=== PATIENT | female | born 1950 | race Caucasian/White ===

== ENCOUNTER 2017-12-05 18:56 | Emergency (ER) | payer MEDICARE, BC ==
[2017-12-05] MEDS: Sodium Chloride 0.9% 2.5 ML Syringe FLUSH PRN ×2 (19:10→19:11)
[2017-12-05] MEDS ORDERED: LORazepam 2 MG/ML SDV IVPUSH ONE (19:28)
[2017-12-05] MEDS ORDERED: diphenhydrAMINE 50 MG/ML SDV IVPUSH ONE (19:28)
[2017-12-05] MEDS ORDERED: Sodium Chloride 0.9% 10 ML Syringe FLUSH PRN (19:28)
[2017-12-05] MEDS ORDERED: Ondansetron 4 MG/2 ML SDV IVPUSH ONE (19:28)
[2017-12-05] MEDS ORDERED: Sodium Chloride 0.9% 1,000 ML IV ONE (19:28)
--- NOTE | 2017-12-05 19:34 | EDM.PDOC ---
ED HPI GENERAL MEDICAL PROBLEM - General Chief Complaint: Gastrointestinal Problem Stated Complaint: VOMITING/DIZZY/SINUS INFECTION Time Seen by Provider: 12/05/17 19:14 - History of Present Illness INITIAL COMMENTS - FREE TEXT/NARRATIVE: HISTORY AND PHYSICAL: History of present illness: The patient is a 67-year-old female with a history of hypercholesterolemia and migraine headaches, for which she sees our neurologist Dr. Whitaker, and who presents with symptoms that started about 9-10 days ago when she started having a sinus infection. She saw her provider in the clinic 4 days ago and was started on Augmentin as well as Flonase and coou-yfu-pzlgova Mucinex. She said she didn't have nausea vomiting or headaches but did have some gradual episodic dizziness for which she described it was a spinning-like sensation but it was a brief in duration. She had no associated symptoms with the dizziness and the 4 days proceeding today. Then today she started to have persistent dizziness which she describes as a spinning-like sensation which is worse when her eyes are open and with any movement of her head. She has no ear pain no discrete headache or neck pain no chest pain or shortness of breath and she has had nausea all day with 4 episodes of vomiting and several episodes of some diarrhea. Patient has no abdominal pain. Patient has no visual changes and has no prior history of vertiginous symptoms or in her ear disturbances. Patient denies any numbness tingling or weakness to her extremities and does not feel lightheaded or feel like she is going to pass out. She describes the sensation as a spinning-like feeling. Her family member at bedside told me that she looked up on the Internet the Melissa maneuver and to try that but she did not see nystagmus. Review of systems: As per history of present illness and below otherwise all systems reviewed and negative. Past medical history: As per history of present illness and as reviewed below otherwise noncontributory. Surgical history: As per history of present illness and as reviewed below otherwise noncontributory. Social history: No reported history of drug or alcohol abuse. Family history: As per history of present illness and as reviewed below otherwise noncontributory. Physical exam: General: Well-developed mildly overweight female who is nontoxic but looks uncomfortable in the room with any movement of her head and has overall pale appearance. She is not diaphoretic and vital signs were noted by me. HEENT: Atraumatic, normocephalic, pupils reactive, EOMs are intact with nystagmus seen upon left gaze, negative for conjunctival pallor or scleral icterus, mucous membranes moist, throat clear, neck supple, nontender, trachea midline. There is no cervical adenopathy or nuchal rigidity and TMs are normal with slight dullness bilaterally. There is no discrete sinus tenderness and no nasal quality to her voice. Lungs: Clear to auscultation, breath sounds equal bilaterally, chest nontender. Heart: S1S2, regular, negative for clicks, rubs, or JVD. Abdomen: Soft, nondistended, nontender. Negative for masses or hepatosplenomegaly. NABS Pelvis: Stable nontender. Genitourinary: Deferred. Rectal: Deferred. Extremities: Atraumatic, negative for cords or calf pain. Neurovascular unremarkable. Neuro: Awake, alert, oriented. Cranial nerves II through XII unremarkable. Cerebellum unremarkable. Motor and sensory unremarkable throughout. Exam nonfocal. Diagnostics: CBC CMP CT scan of the head Therapeutics: IV IV fluids Zofran Benadryl Ativan Antivert Reevaluation 2019: Patient no longer has much nausea and feels improved but she has not tried to move very much. She is currently only half done with her IV fluids so we will allow her to finish those fluids and then try a by mouth challenge and a movement challenge to see if we can get her discharged home. 2107: Patient is able to sit at the bedside and does feel improved and she was able to tolerate water. I will give her a dose of Antivert and sent home with Antivert and Zofran and instructions to follow-up with Dr. Whitaker. Impression: Acute vertigo with history of sinus infection on therapy Definitive disposition and diagnosis as appropriate pending reevaluation and review of above. denies pain Pain Score (Numeric/FACES): 0 - Related Data Allergies Allergy/AdvReac Type Severity Reaction Status Date / Time No Known Allergies Allergy Verified 12/05/17 19:05 Home Meds: Home Meds Aspirin 81 mg PO DAILY 12/05/17 [History] Calcium Carbonate/Vitamin D3 [Calcium 600-Vit D3 500 Softgel] 1 each PO DAILY [History] Citalopram [Citalopram HBr] 10 mg PO DAILY 12/05/17 [History] Latanoprost 1 drop EYEBOTH DAILY 12/05/17 [History] Timolol Maleate [Timoptic 0.5% Ophth Soln] 1 drop EYEBOTH DAILY 12/05/17 [ History] Topiramate [Topiramate ER] 1 tab PO BID 12/05/17 [History] atorvaSTATin [Lipitor] 20 mg PO BEDTIME 12/05/17 [History] Past Medical History HEENT History: Reports: Glaucoma Cardiovascular History: Reports: High Cholesterol Respiratory History: Reports: None Gastrointestinal History: Reports: None Genitourinary History: Reports: None 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: Musculoskeletal History: Reports: None Neurological History: Reports: Migraines Psychiatric History: Reports: None Endocrine/Metabolic History: Reports: None Hematologic History: Reports: None Immunologic History: Reports: None Oncologic (Cancer) History: Reports: None Dermatologic History: Reports: None - Infectious Disease History Infectious Disease History: Reports: Mumps - Past Surgical History Head Surgeries/Procedures: Reports: None GI Surgical History: Reports: Cholecystectomy Female Surgical History: Reports: Hysterectomy Social & Family History - Family History Family Medical History: Noncontributory - Tobacco Use Smoking Status *Q: Former Smoker Used Tobacco, but Quit: No - Caffeine Use Caffeine Use: Reports: Soda - Recreational Drug Use Recreational Drug Use: No ED ROS GENERAL - Review of Systems Review Of Systems: ROS reveals no pertinent complaints other than HPI. ED EXAM, GENERAL - Physical Exam Exam: See Below (See dictation) Course - Vital Signs Last Recorded V/S: Last Vital Signs Temp 36.1 C 12/05/17 19:05 Pulse 64 12/05/17 19:05 Resp 18 12/05/17 19:05 BP 139/70 12/05/17 19:05 Pulse Ox 98 12/05/17 19:05 - Orders/Labs/Meds Orders: Active Orders 24 hr Category Date Time Status Head wo Cont [CT] Stat Exams 12/05/17 19:28 Taken Sodium Chloride 0.9% [Saline Flush] Med 12/05/17 19:28 Active 10 ml FLUSH ASDIRECTED PRN Sodium Chloride 0.9% [Saline Flush] Med 12/05/17 19:28 Active 2.5 ml FLUSH ASDIRECTED PRN Saline Lock Insert [OM.PC] Stat Oth 12/05/17 19:28 Ordered Medication Orders Sodium Chloride (Saline Flush) 10 ml FLUSH ASDIRECTED PRN PRN Reason: Keep Vein Open Sodium Chloride (Saline Flush) 2.5 ml FLUSH ASDIRECTED PRN PRN Reason: Keep Vein Open Last Admin: 12/05/17 19:11 Dose: 2.5 ml Admin: 12/05/17 19:10 Dose: 2.5 ml Labs: Laboratory Tests 12/05/17 12/05/17 Range/Units 19:10 19:10 WBC 7.65 (4.0-11.0) K/uL RBC 5.26 (4.30-5.90) M/uL Hgb 15.6 (12.0-16.0) g/dL Hct 45.7 (36.0-46.0) % MCV 86.9 (80.0-98.0) fL MCH 29.7 (27.0-32.0) pg MCHC 34.1 (31.0-37.0) g/dL RDW Std Deviation 43.4 (28.0-62.0) fl RDW Coeff of Rachid 14 (11.0-15.0) % Plt Count 199 (150-400) K/uL MPV 10.90 (7.40-12.00) fL Neut % (Auto) 76.1 (48.0-80.0) % Lymph % (Auto) 19.6 (16.0-40.0) % Newberry % (Auto) 4.1 (0.0-15.0) % Eos % (Auto) 0.1 (0.0-7.0) % Baso % (Auto) 0.1 (0.0-1.5) % Neut # (Auto) 5.8 H (1.4-5.7) K/uL Lymph # (Auto) 1.5 (0.6-2.4) K/uL Newberry # (Auto) 0.3 (0.0-0.8) K/uL Eos # (Auto) 0.0 (0.0-0.7) K/uL Baso # (Auto) 0.0 (0.0-0.1) K/uL Nucleated RBC % 0.0 /100WBC Nucleated RBCs # 0 K/uL Sodium 138 (136-145) mmol/L Potassium 3.9 (3.5-5.1) mmol/L Chloride 104 (98-107) mmol/L Carbon Dioxide 23.3 (21.0-32.0) mmol/L BUN 12 (7.0-18.0) mg/dL Creatinine 0.8 (0.6-1.0) mg/dL Est Cr Clr Drug Dosing 50.36 mL/min Estimated GFR (MDRD) > 60.0 ml/min Glucose 110 H (74-106) mg/dL Calcium 9.3 (8.5-10.1) mg/dL Total Bilirubin 0.6 (0.2-1.0) mg/dL AST 27 (15-37) IU/L ALT 26 (14-63) IU/L Alkaline Phosphatase 72 (46-116) U/L Total Protein 7.8 (6.4-8.2) g/dL Albumin 3.7 (3.4-5.0) g/dL Globulin 4.1 H (2.0-3.5) g/dL Albumin/Globulin Ratio 0.9 L (1.3-2.8) Meds: Medications Generic Name Dose Route Start Last Admin Trade Name Freq PRN Reason Stop Dose Admin Sodium Chloride 10 ml 12/05/17 19:28 Saline Flush FLUSH ASDIRECTED PRN Keep Vein Open Sodium Chloride 2.5 ml 12/05/17 19:28 12/05/17 19:11 Saline Flush FLUSH 2.5 ml ASDIRECTED PRN Administration Keep Vein Open Discontinued Medications Generic Name Dose Route Start Last Admin Trade Name Freq PRN Reason Stop Dose Admin Diphenhydramine HCl 50 mg 12/05/17 19:28 12/05/17 19:56 Benadryl IVPUSH 12/05/17 19:29 50 mg ONETIME ONE Administration Sodium Chloride 1,000 mls @ 999 mls/hr 12/05/17 19:28 12/05/17 19:55 Normal Saline IV 12/05/17 20:28 999 mls/hr STAT ONE Administration Lorazepam 1 mg 12/05/17 19:28 12/05/17 19:58 Ativan IVPUSH 12/05/17 19:29 1 mg ONETIME ONE Administration Ondansetron HCl 4 mg 12/05/17 19:28 12/05/17 19:55 Zofran IVPUSH 12/05/17 19:29 4 mg ONETIME ONE Administration Departure - Departure Time of Disposition: 21:11 Disposition: Home, Self-Care 01 Condition: Good Clinical Impression: Vertigo Sinusitis Qualifiers: Sinusitis location: maxillary Chronicity: acute Recurrence: not specified as recurrent Qualified Code(s): J01.00 - Acute maxillary sinusitis, unspecified - Discharge Information Referrals: Arpan Barbour MD [Primary Care Provider] - Forms: ED Department Discharge Additional Instructions: The following information is given to patients seen in the emergency department who are being discharged to home. This information is to outline your options for follow-up care. We provide all patients seen in our emergency department with a follow-up referral. The need for follow-up, as well as the timing and circumstances, are variable depending upon the specifics of your emergency department visit. If you don't have a primary care physician on staff, we will provide you with a referral. We always advise you to contact your personal physician following an emergency department visit to inform them of the circumstance of the visit and for follow-up with them and/or the need for any referrals to a consulting specialist. The emergency department will also refer you to a specialist when appropriate. This referral assures that you have the opportunity for followup care with a specialist. All of these measure are taken in an effort to provide you with optimal care, which includes your followup. Under all circumstances we always encourage you to contact your private physician who remains a resource for coordinating your care. When calling for followup care, please make the office aware that this follow-up is from your recent emergency room visit. If for any reason you are refused follow-up, please contact the [facility] emergency department at and ask to speak to the emergency department charge nurse. [facility] Primary care- Internal Medicine and Family [facility] [address] [place] [id number] [facility] Specialty care-Neurology Professional Building [address] [place] [address], [address] [place] [address] Please continue and finish her antibiotics for your sinusitis as treating this will also help your symptoms of vertigo. Please also add an [id number] antihistamine such as Benadryl/Claritin/Chelsea to help dry up the sinus fluid. Use medications as prescribed, Zofran and Antivert, for symptoms and please call and schedule a follow-up appointment with either Dr. Whitaker or your provider in the clinic in the next few days for reevaluation. Return to ER as needed and as discussed. Do all position changes very slowly as the dizziness is going to persist over the next 24-48 hours. - My Orders Last 24 Hours: My Active Orders 12/05/17 19:28 Head wo Cont [CT] Stat Sodium Chloride 0.9% [Saline Flush] 10 ml FLUSH ASDIRECTED PRN Sodium Chloride 0.9% [Saline Flush] 2.5 ml FLUSH ASDIRECTED PRN Saline Lock Insert [OM.PC] Stat - Assessment/Plan Last 24 Hours: My Active Orders 12/05/17 19:28 Head wo Cont [CT] Stat Sodium Chloride 0.9% [Saline Flush] 10 ml FLUSH ASDIRECTED PRN Sodium Chloride 0.9% [Saline Flush] 2.5 ml FLUSH ASDIRECTED PRN Saline Lock Insert [OM.PC] Stat
[2017-12-05 19:43] LABS: CHLORIDE,CL 104 mmol/L (98-107); SODIUM,NA 138 mmol/L (136-145)
[2017-12-05] MEDS ORDERED: Meclizine 25 MG Tab PO ONE (21:13)
--- NOTE | 2017-12-06 10:19 | CT ---
EXAM DATE: 12/05/17 PATIENT'S AGE: 67 Patient: MAXINE JARQUIN Facility: [place], [place] Site . Site : 1950 Study: CT Head WO CONT [id number] 7:55:04 PM Ordering Physician: Leonila Hale Final Report: INDICATION: Dizziness, sinusitis. TECHNIQUE: Noncontrast CT of the brain was performed with images acquired from skull base to vertex. COMPARISON: None available. FINDINGS: There is no acute intracranial hemorrhage. Ventricles are of normal size and morphology. No mass effect or midline shift is present. The shoemaker-white matter differentiation is normal. The visualized portions of the orbits are normal. The visualized portions of the mastoids are normal. There is mild bilateral maxillary sinus mucosal thickening. The visualized portions of the paranasal sinuses are otherwise normal. No fractures are identified. There is atherosclerotic calcification of the carotid siphons and intracranial left vertebral artery. IMPRESSION: 1. No acute intracranial abnormality 2. Mild bilateral maxillary sinus mucosal thickening Please note that all CT scans at this facility use dose modulation, iterative reconstruction, and/or weight-based dosing when appropriate to reduce radiation dose to as low as reasonably achievable. Dictated by Festus Loera MD @ Dec 05 2017 7:57PM (Electronic Signature) Report Signed by Proxy. [facility]
== END 2017-12-05 21:30 | disposition home or self-care (01) ==
LOC: MW.ED 18:56
DX: J01.00 Acute maxillary sinusitis, unspecified (principal); R42 Dizziness and giddiness; E78.00 Pure hypercholesterolemia, unspecified; Z87.891 Personal history of nicotine dependence; Z79.82 Long term (current) use of aspirin; Z79.899 Other long term (current) drug therapy
CPT/HCPCS: 36415; 70450; 80053; 85025; 96361; 96374; 96375; 99284; A9270; J1200; J2060; J2405; J7040; 99283

== ENCOUNTER 2022-04-01 07:14 | Day surgery (SDC) | payer MEDICARE, BC ==
[~2022-04-01 07:14] MED LIST: Lactated Ringers 1,000 ML IV SCH; Sodium Chloride 0.9% 10 ML Syringe FLUSH PRN; Sodium Chloride 0.9% 2.5 ML Syringe FLUSH PRN; Sodium Chloride 0.9% 20 ML SDV IV PRN
[2022-04-01] MEDS ORDERED: Propofol 200 MG/20 ML SDV ONE (07:20)
[2022-04-01] MEDS ORDERED: fentaNYL 100 MCG/2 ML SDV ONE (07:20)
[2022-04-01] MEDS ORDERED: Glycopyrrolate 0.2 MG/ML SDV ONE (08:56)
== END 2022-04-01 09:35 | disposition home or self-care (01) ==
LOC: MW.SDS 07:14
PROVIDERS: ATTEND Surgery
DX: Z12.11 Encounter for screening for malignant neoplasm of colon (principal); K57.30 Diverticulosis of large intestine without perforation or abscess without bleeding; E78.00 Pure hypercholesterolemia, unspecified; G43.009 Migraine without aura, not intractable, without status migrainosus; E66.9 Obesity, unspecified; M85.80 Other specified disorders of bone density and structure, unspecified site; Z79.82 Long term (current) use of aspirin; Z79.899 Other long term (current) drug therapy; Z90.49 Acquired absence of other specified parts of digestive tract; Z98.890 Other specified postprocedural states; Z80.0 Family history of malignant neoplasm of digestive organs; Z87.891 Personal history of nicotine dependence; Z68.33 Body mass index [BMI] 33.0-33.9, adult
CPT/HCPCS: G0104; J2704; J3010; J3490; J7120; 00812

== ENCOUNTER 2023-04-04 11:23 | Emergency (ER) | payer MEDICARE, BC ==
[2023-04-04] MEDS ORDERED: Sodium Chloride 0.9% 2.5 ML Syringe FLUSH PRN (11:24)
[2023-04-04] MEDS ORDERED: Sodium Chloride 0.9% 10 ML Syringe FLUSH PRN (11:24)
[2023-04-04] MEDS ORDERED: Aspirin 81 MG Tab.Chew PO ONE (11:33)
[2023-04-04 11:38] LABS: BASOPHILS ABSOLUTE AUTO 0.1 K/uL (0.0-0.1); BASOPHILS PERCENT AUTO 0.7 % (0.0-1.5); EOSINOPHILS ABSOLUTE AUTO 0.2 K/uL (0.0-0.7); EOSINOPHILS PERCENT AUTO 2.3 % (0.0-7.0); HEMATOCRIT 42.4 % (36.0-46.0); LYMPHOCYTES ABSOLUTE AUTO 1.7 K/uL (0.6-2.4); MEAN CORPUSCULAR HEMOGLOBIN 29.6 pg (27.0-32.0); MEAN CORPUSCULAR VOLUME 89.6 fL (80.0-98.0); MONOCYTES ABSOLUTE AUTO 0.6 K/uL (0.0-0.8); MONOCYTES PERCENT AUTO 8.4 % (0.0-15.0); NEUTROPHILS ABSOLUTE AUTO 4.8 K/uL (1.4-5.7); NEUTROPHILS PERCENT AUTO 65.6 % (48.0-80.0); NRBC ABSOLUTE 0 K/uL; PLATELET COUNT,PLT 236 K/uL (150-400); RED BLOOD CELL COUNT 4.73 M/uL (4.30-5.90); WHITE BLOOD CELL COUNT,WBC 7.26 K/uL (4.0-11.0)
[2023-04-04 12:03] LABS: A/G RATIO 0.8 (0.9-1.6); ALANINE AMINOTRANSFERASE,ALT 17 IU/L (14-63); ALBUMIN 3.3 g/dL (3.4-5.0); ALKALINE PHOSPHATASE 71 U/L (46-116); ASPARTATE AMNIOTRANSFERASE,AST 21 IU/L (15-37); BILIRUBIN TOTAL 0.4 mg/dL (0.2-1.0); BLOOD UREA NITROGEN,BUN 15 mg/dL (7.0-18.0); CALCIUM 9.1 mg/dL (8.5-10.1); CARBON DIOXIDE,CO2 27.3 mmol/L (21.0-32.0); CHLORIDE,CL 106 mmol/L (98-107); GLUCOSE RANDOM 95 mg/dL (74-106); POTASSIUM,K 4.4 mmol/L (3.5-5.1); PROTEIN TOTAL,TP 7.3 g/dL (6.4-8.2); SODIUM,NA 141 mmol/L (136-145)
[2023-04-04 12:04] LABS: ESTIMATED GFR 61 mL/min (>60)
== END 2023-04-04 14:50 | disposition home or self-care (01) ==
LOC: MW.ED 11:23
DX: R07.9 Chest pain, unspecified (principal); E78.00 Pure hypercholesterolemia, unspecified; E66.9 Obesity, unspecified; Z68.33 Body mass index [BMI] 33.0-33.9, adult; Z79.899 Other long term (current) drug therapy
CPT/HCPCS: 36415; 71045; 80053; 84484; 85025; 99285; A9270; J3490; 93010